=== PATIENT | female | born 1965 | race Caucasian/White ===

== ENCOUNTER 2023-06-06 16:34 | Emergency (ER) | payer OTHER, MEDICAID, SELFPAY ==
[2023-06-06 16:56] VITALS: BP 152/90; PULSE 88; RESP 16; TEMP 36.8; O2SAT 97
--- NOTE | 2023-06-06 20:13 | ED.VIS.FALL ---
HPI HPI - Fall History of Present Illness Chief Complaint: Fall Informant: patient Narrative Narrative: Patient tripped on her shoes and an uneven area of the ground. She fell forward. She caught herself on the hands. She states she abraded her right hand just slightly but it does not hurt. Never hit her knees. She did hit her forehead and has a laceration above the eye. She is not on any blood thinners. She does not have a headache or neurologic symptoms. No nausea vomiting. No real headache. Last tetanus was over 10 years ago. [facility] Medical History (Updated 06/06/23 @ 21:[address] [place] MD) Appendicitis Home Medications NK 06/06/23 [History Last Taken Unknown] Allergy/AdvReac Type Severity Reaction Status Date / Time No Known Allergies Allergy Verified 06/06/23 16:58 Surgical History (Updated 06/06/23 @ 20:17 by Claudia Rodriguez) History of dental surgery Hx of tubal ligation Social History Smoking Status: Former smoker ROS ROS ED Constitutional Constitutional ED: Denies chills or fever(s) Eyes Eyes: Denies blurry vision, change in vision or diplopia ENT ENT ED: Denies rhinorrhea Cardiovascular Cardiovascular: Denies chest pain Respiratory/Chest Respiratory/Chest: Denies cough Gastrointestinal Gastrointestinal: Denies nausea or vomiting Integumentary Reports other Details: Laceration Neurologic Neurologic: Denies headache(s), paresthesias or weakness Hematologic/Lymphatic Hematologic/Lymphatic: Denies easy bleeding or easy bruising Allergic/Immunologic Allergic/Immunologic ED: Denies urticaria EXAM Physical Exam Narrative Exam Narrative: General: Patient awake alert no acute distress pleasant clear and consistent informant. HEENT: There is a 3 cm laceration above the right eyebrow. No active bleeding. Minimal swelling. A little bit of bruising just below it. No step-off. No bony tenderness. Eyes: A little bit of bruising in the upper lid is starting to develop but no involvement of the eye itself. No proptosis or limitation of motion. Neck is not tender or painful of range of motion Cardiorespiratory shows easy unlabored breathing no tenderness and normal saturations. Lungs are clear. Abdomen is benign. Extremities show just a little redness to the base of the hypothenar eminence on the right hand but no actual break in the skin. No tenderness. No pain with motion. Const Vital Signs: 06/06/23 16:56 06/06/23 20:15 Temperature 98.2 F Temperature Source Oral Pulse Rate 88 Respiratory Rate 16 Respiratory Effort Normal Non-Labored Respiratory Depth Normal Respiratory Pattern Normal Blood Pressure 152/90 H Blood Pressure Mean 110 Pulse Ox 97 Oxygen Delivery Method Room Air Room Air MDM MDM MDM Narrative Medical decision making narrative: Patient has had injury but has no pain at the area. No blood thinners. No headache no neurologic symptoms. I do not think she requires CAT scan. We did suture the wound. She tolerated this well. Sutures will be out in 5 days. Discussed reasons to return and signs of infection. Procedures Lacerations Forehead: Depth: Skin Shape: Linear Prep: Sterile Conditions and Shure-Clens Laceration repair: Irrigated, Lidocaine with epi and Local Irrigated (ml): 100 Number of Sutures/[place]: 6 Suture Information: Ethilon and 6-0 Comment: Patient tolerated procedure well and was closed with good Cosmesis hemostasis. Discharge Plan Triage Chief Complaint: Fall ED Provider: [place] Pet[place] Dx/Rx/DC Orders Clinical Impression: Fall from slip, trip, or stumble, Forehead laceration, Sutured skin wound Instructions: ED Laceration, All Closures Prescriptions: No Action NK Primary Care Provider: Care Physician,No Primary Referrals: [facility] Doctor,Out of [Non-Staff] - Activity Restrictions/Additional Instructions: Sutures out in approximately 5 days. May see your private physician, urgent care or return. Disposition Disposition: Home, Self Care
[2023-06-06] MEDS: Lidocaine/Epi/Tetracaine 50 ML 1 APPLIC TOPICAL (20:14)
[2023-06-06 20:15] VITALS: BMI 31.4
--- OUTSIDE RECORDS SUMMARY | 2023-06-06 20:33 | XMS RPT_ITS | CCD ---
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 Name Role Phone PHYSICIAN, NONE Primary Care Physician Unavailab le Unavailable Primary Care Provider UnavailJOAQUINA Jacobson Referring Unavailable ROBBY SANTANA Attending Unavailabl e ROBBY SANTANA Attending UnavailROBBY Lima Referring Unavailabl e Unavailable Primary Care Provider Unavailabl e PHYSICIAN, NONE Primary Care Unavailable ISABEL SAEED MD Attending Unavailab le ISABEL SAEED MD Attending Unavailab le PHYSICIAN, NONE Primary Care Unavailable PHYSICIAN, NONE Primary Care Unavailable ISABEL SAEED MD Attending Unavailab le PHYSICIAN, NONE Primary Care Unavailable ISABEL SAEED MD Attending Unavailab le Medications Current Medications Medication Drug Class(es) Dates Sig (Normalized) Sig (Original) HYDROmorphone hydrochloride 2 mg oral tablet (1 source) Opioid Agonist Start: 12-27-2005 Dilaudid 2 mg, PO, q4-6hr, PRN, 24 tab(s), 0, 0 Start Date: 12/27/05 Status: Ordered Completed/Discontinued Medications Medication Drug Class(es) Dates Sig (Normalized) Sig (Original) Vicodin (1 source) Opioid Agonist Start: 12-27-2005 Vicodin 1 tab(s), PO, q4hr, 0, 0 Start Date: 12/27/05 Status: Ordered betamethasone 3 mg/ml / betamethasone acetate 3 mg/ml injectable suspension (1 source) Corticosteroid Start: 02-03-2022 End: 02-03-2022 betamethasone acetate-betamethason e sodium phosphate 12 mg injection (CELESTONE) Problems Problem Classification Problem Date Documented Date Episodic/Chronic Esophageal disorders (2 sources) Gastro-esophageal reflux disease without esophagitis; Translations: [Gastro-esophageal reflux disease without esophagitis] Onset: 03-21-2023 Chronic Joint disorders and dislocations; trauma-related (4 sources) Tear of medial meniscus of knee; Translations: [Other tear of medial meniscus, current injury, left knee, initial encounter] Onset: 02-03-2022 Episodic Osteoarthritis (4 sources) Osteoarthritis of left knee joint; Translations: [Unilateral primary osteoarthritis, left knee] Onset: 02-03-2022 Chronic Other non-traumatic joint disorders (3 sources) Pain in left knee; Translations: [Pain in joint, lower leg] Onset: 02-03-2022 Episodic Results Test Name Value Interpretation Reference Range Facil ity Vital Signs Date Time Vital Sign Value Performing Clinician Faci lity 02-03-2022 09:07-0400 Body height 172.7 cm Robby Santana MD Work Phone: [facility] 02-03-2022 09:07-0400 Body weight 92.99 kg Robby Santana MD Work Phone: [facility] 02-03-2022 09:07-0400 Heart rate 73 /min Robby Santana MD Work Phone: [facility] 02-03-2022 09:07-0400 SaO2% (BldA) [Mass fraction] 97 % Robby Santana MD Work Phone: [facility] 01-28-2022 17:17-0400 Body temperature 97.52 [degF] BRANDON WU DO [facility] 01-28-2022 17:17-0400 Diastolic blood pressure 87 mm[Hg] BRANDON WU DO [facility] 01-28-2022 17:17-0400 Heart rate 72 /min [facility] 01-28-2022 17:17-0400 Mean blood pressure 103 mm[Hg] BRANDON WU DO [facility] 01-28-2022 17:17-0400 Respiratory rate 18 /min BRANDON [employer] [facility] 01-28-2022 17:17-0400 Systolic blood pressure 136 mm[Hg] BRANDON [employer] [facility] 01-28-2022 14:53-0400 Body temperature 98.06 [degF] BRANDON [employer] [facility] 01-28-2022 14:53-0400 Body weight 92.4 kg BRANDON [employer] [facility] 01-28-2022 14:53-0400 Diastolic blood pressure 98 mm[Hg] [facility] 01-28-2022 14:53-0400 Heart rate 86 /min BRANDON [employer] [facility] 01-28-2022 14:53-0400 Respiratory rate 18 /min [facility] [employer] [facility] 01-28-2022 14:53-0400 Systolic blood pressure 151 mm[Hg] [facility] Encounters Encounter Date Encounter Type Care Provider Facility Start: 05-04-2023 ambulatory NONE PHYSICIAN Facility :A Start: 04-05-2023 End: 04-06-2023 ambulatory NONE PHYSICIAN Facility:A Start: 03-21-2023 End: 03-22-2023 ambulatory NONE PHYSICIAN Facility:A Start: 03-21-2023 End: 03-26-2023 ambulatory ISABEL SAEED MD Facility:A Start: 05-04-2022 End: 05-04-2022 ambulatory ROBBY SANTANA Facility:[id number] Start: 05-04-2022 End: 05-04-2022 Patient encounter procedure Robby Santana MD Work Phone: [facility] Procedures Date Procedure Procedure Detail Performing Clinician Start: 02-03-2022 Arthrocentesis aspir &/inj major jt/bursa w/o us Robby Santana MD Work Phone: Start: 02-03-2022 Radiologic exam knee complete 4/more views Joaquina Parsons APRN.CNP Work Phone: Plan of Treatment Date Care Activity Detail Author Start: 01-06-2022 Influenza vaccination INFLUENZA (#1) [facility] Start: 05-08-2021 DEPRESSION ASSESSMENT DEPRESSION ASSESSMENT [facility] Start: 2016 SHINGRIX VACCINE (1 of 2) SHINGRIX VACCINE (1 of 2) [facility] Start: 12-26-2011 COLOGUARD (FIT-DNA) COLOGUARD (FIT-DNA) [facility] Start: 12-26-2011 Colonoscopy COLONOSCOPY [facility] Start: 12-26-2011 COLORECTAL CANCER SCREENING COLORECTAL CANCER SCREENING [facility] Start: 12-26-[address] COLONOGRAPHY [facility] Start: 12-26-2011 DIABETES SCREEN DIABETES SCREEN [facility] Start: 12-26-2011 FECAL OCCULT BLOOD FECAL OCCULT BLOOD [facility] Start: 12-26-2011 LIPID SCREEN LIPID SCREEN [facility] Start: 12-26-2011 SIGMOIDOSCOPY SIGMOIDOSCOPY [facility] Start: 2006 Mammography MAMMOGRAM [facility] Start: 1996 HPV TESTING HPV TESTING [facility] Start: 12-26-1987 PAP TESTING PAP TESTING [facility] Start: 1985 Urine microalbumin profile DTAP,TDAP,TD (1 - Tdap) [facility] Start: 1984 HEPATITIS C SCREENING HEPATITIS C SCREENING [facility] Start: 1984 HIV SCREENING HIV SCREENING [facility] Start: 06-27-1967 COVID-19 VACCINE (#1) COVID-19 VACCINE (#1) [facility] Start: 1965 HEPATITIS B (1 of 3 - 3-dose series) HEPATITIS B (1 of 3 - 3-dose series) [facility] End: 06-03-2023 MRI KNEE WO IVCON LT MRI KNEE WO IVCON LT Radiology Routine Primary osteoarthritis of left knee Tear of medial meniscus of left knee, current, unspecified tear type, initial encounter 1 Occurrences starting 05/04/2022 until 06/03/2023 [facility] Work Phone: Payers Date Payer Category Payer Unknown [id number] 2021 Unknown DAV DEMARCO HI X [id number] 2021-Present [phone] [address] [address] [place] [address] O [id number] 2021 Unknown [id number] 1966 Unknown [id number] 1965 Unknown [id number] 1966 Unknown [id number] 1966 Unknown [id number] Social History Date Type Detail Facility Tobacco smoking status [facility] Start: 02-03-2022 [facility] Start: 02-03-2022 Tobacco use and exposure Smoke less tobacco non-user [facility] Start: 02-03-2022 End: 05-04-2022 Alcohol intake Lifetime non-drinker (finding) [facility] Start: 1965 Sex Assigned At Not on file [facility] Start: 01-23-2022 End: 02-02-2022 Exposure to SARS-CoV-2 (event) Not sure [facility] Functional Status Date Assessment Result Facility 01-28-2022 Functional Status Standard Safet y ID band on, Call device within reach, Bed in low position, Wheels locked, Upper/Half-Length side-rails up, Phone within reach [facility] Mental Status Date Assessment Result Facility 01-28-2022 Mental Status Orientation Oriented x 4 [facility] Clinical Notes 01-28-2022 to 05-04-2022 Robby Santana MD - 05/04/2022 9:14 AM Yumiko Rainey MA - 05/04/2022 9:09 AM Franco Santana MD - 02/03/2022 9:40 AM Geno Rainey MA - 02/03/2022 9:04 AM EDT Note Date & Type Note Facility 05-04-2022 Note HNO ID: [id number] Author: Robby Santana MD Service: ? Author Type: Physician Type: Progress Notes Filed: 05/04/2022 9:35 AM Note Text: Chichi Duncan 1965 56 year old Chichi Duncan is a 56 year old female with the presenting complaint of Established Patient and Knee Pain of the Left Knee. Chichi reports a current pain level of 7 (Knee-Left). She describes the pain as Sharp. The pain is Continuous . Interventions tried include Medication. She was last seen in orthopaedic clinic for her knee on 02/03/2022 with Robby Santana. Most recent knee imaging was completed on 02/03/2022 (XR KNEE INJURY 4V AP/LAT/OBLS LEFT) . Attached is imaging for the order.The most recent knee injection was Large Joint Arthro/Inj: L knee joint, injected on 02/03/2022 by Robby Santana. In the past (based on all medication history on file), Chichi has tried the following anti-inflammatory medications (not necessarily for this reason for visit): betamethasone acetate,sod phos. Last XR Knee - Impression Only XR KNEE INJURY 4V AP/LAT/OBLS LEFT Exam End: 02/03/2022 8:48 AM (Final result) Impression: IMPRESSION: No acute osseous abnormality. Joint effusion and minimal degenerative change. ... Orthopaedic Injections (up to last 5) Some values may be hidden. Unless noted otherwise, only the newest values recorded on each date are displayed. 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 She is genetically inclined osteoarthritis she is got degenerative changes at her DIPs and states that members of her family have significant arthritis as well. Her knee pain that continues in his medial sided pain she is got pain with palpation the medial joint line pain with flexion rotation with some crepitus there consistent with a Dawood's test her plain x-rays do show pretty reasonable preservation of the soft tissues in order an MRI to assess the soft tissue in her knee space a little bit better. We will see her back when that is done we did discuss NSAID anti-inflammatory medication and we started on Naprosyn to 50 and educated her about how to take that and avoid heartburn. We will have her come back with her MRI and see how the NSAID is being tolerated and whether it is helping. She is also having pain in the area of the SI joint on the right side as well with the typical pain radiation nurse ordered to evaluate that issue as well. Objective: ACTIVE PROBLEM LIST Unilateral Primary Osteoarthritis, Left Knee Other Tear of Medial Meniscus, Current Injury, Left Knee, Initial Encounter Assessment: Plan: Robby Santana MD [facility] 05-04-2022 History of Present illness Narrative Chichi Duncan 1965 56 year old Chichi Duncan is a 56 year old female with the presenting complaint of Established Patient and Knee Pain of the Left Knee. Chichi reports a current pain level of 7 (Knee-Left). She describes the pain as Sharp. The pain is Continuous . Interventions tried include Medication. She was last seen in orthopaedic clinic for her knee on 02/03/2022 with Robby Santana. Most recent knee imaging was completed on 02/03/2022 (XR KNEE INJURY 4V AP/LAT/OBLS LEFT) . Attached is imaging for the order.The most recent knee injection was Large Joint Arthro/Inj: L knee joint, injected on 02/03/2022 by Robby Santana. In the past (based on all medication history on file), Chichi has tried the following anti-inflammatory medications (not necessarily for this reason for visit): betamethasone acetate,sod phos. Last XR Knee - Impression Only XR KNEE INJURY 4V AP/LAT/OBLS LEFT Exam End: 02/03/2022 8:48 AM (Final result) Impression: IMPRESSION: No acute osseous abnormality. Joint effusion and minimal degenerative change. ... Orthopaedic Injections (up to last 5) Some values may be hidden. Unless noted otherwise, only the newest values recorded on each date are displayed. 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 She is genetically inclined osteoarthritis she is got degenerative changes at her DIPs and states that members of her family have significant arthritis as well. Her knee pain that continues in his medial sided pain she is got pain with palpation the medial joint line pain with flexion rotation with some crepitus there consistent with a Dawood's test her plain x-rays do show pretty reasonable preservation of the soft tissues in order an MRI to assess the soft tissue in her knee space a little bit better. We will see her back when that is done we did discuss NSAID anti-inflammatory medication and we started on Naprosyn to 50 and educated her about how to take that and avoid heartburn. We will have her come back with her MRI and see how the NSAID is being tolerated and whether it is helping. She is also having pain in the area of the SI joint on the right side as well with the typical pain radiation nurse ordered to evaluate that issue as well. Objective: ACTIVE PROBLEM LIST Unilateral Primary Osteoarthritis, Left Knee Other Tear of Medial Meniscus, Current Injury, Left Knee, Initial Encounter Assessment: Plan: Robby Santana MD documented in this encounter [facility] 05-04-2022 Nurse Note Patient here to follow up on Left Knee pain that has been going on for several months. She was last seen end of Jan 2022 and had the knee aspirated and injected. She states that helped for only a few days. She states knee is painful with pretty much type of activity and it does swell. She is taking ibuprofen for the pain, uses a heating pad. documented in this encounter [facility] 02-03-2022 Note HNO ID: [id number] Author: Robby Santana MD Service: ? Author Type: Physician Type: Progress Notes Filed: 02/03/2022 9:42 AM Note Text: Chichi Duncan 1965 56 year old Chichi Duncan is a 56 year old female with the presenting complaint of New and Knee Pain of the Left Knee. Chichi reports a current pain level of 8 (Knee-Left). She describes the pain as Sharp. The pain is Continuous, and has lasted for 1 Months. Most recent knee imaging was completed on 02/03/2022 (XR KNEE INJURY 4V AP/LAT/OBLS LEFT) . Attached is imaging for the order. Last XR Knee - Impression Only XR KNEE INJURY 4V AP/LAT/OBLS LEFT Exam End: 02/03/2022 8:48 AM (Final result) Impression: IMPRESSION: No acute osseous abnormality. Joint effusion and minimal degenerative change. ... 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 She does not recall any inciting event since her knee has been swollen and painful it really is affecting her ability to work and how she is able to do her work. Objective: On examination she is capable of full extension except its uncomfortable she only flexes to about 120 degrees she has small to moderate sized effusion she is stable to varus flex and AP stressing she has tremendous medial joint line tenderness to palpation and significant pain along the medial joint line with flexion and rotation as well. Plain x-rays show a little loss of soft to space the medial compartment of her knee she also has some osteophytic lipping around the medial compartment of her knee rest of her knee looks pretty good. There is no problem list on file for this patient. Assessment: Diagnosis is osteoarthritis she has tremendous osteoarthritic involvement of her DIPs of both hands. Indicating tremendous genetic involvement. Plan: We aspirated her and injected her knee with tentative diagnosis of osteoarthritis there she was significantly relieved we will reassess her again in a month. Large Joint Arthro/Inj: L knee joint Informed Consent Consent Obtained: Verbal Geneva Protocol A moment to CARE was completed. SIGN IN Patient/Surrogate Stated/Verified: Patient name, Date of , Relevant allergies and Intended procedure TIME OUT Medications required for procedure verified. 02/03/2022 9:42 AM The procedure site was prepped in the usual sterile fashion. Site: L knee joint Aspirate: 15 mL clear and yellowMedications: 12 mg betamethasone acetate-betamethasone sodium phosphate 6 mg/mL Anesthetics: 0.5 mL bupivacaine (PF) 0.25 % (2.5 mg/mL) Outcome: Tolerated well, no immediate complications Post-injection instructions were reviewed with the patient and the patient voiced understanding of these instructions. SIGN OUT Post-procedure follow-up management communicated and Plan of Care Visit completed when applicable Robby Santana MD [facility] 02-03-2022 Note HNO ID: [id number] Author: RT Raheel(R) Service: Radiology Author Type: Technologist Type: Progress Notes Filed: 02/03/2022 8:49 AM Note Text: Summary: left knee Radiology Service Progress Note PATIENT NAME: Chichi Duncan DATE OF SERVICE: February 03, 2022 TIME: 8:48 AM PATIENT IDENTITY VERIFICATION COMPLETED USING TWO (2) IDENTIFIERS: Name and Date of confirmed by patient verbally. FALL SCREENING: Has the patient had 2 falls in the last year or 1 fall with injury or currently using an Ambulatory Assistive Device (Walker, Cane, Wheelchair, Crutches, etc.)? No PATIENT GENDER DATA: Female. status: : No status: N/A PATIENT RELEVANT IMPLANT DATA REVIEWED: Not Applicable RADIOLOGY DEPARTMENT: General X-ray: Exam(s) Completed: Lower Extremity X-Ray(s): Knee, AP / Lat / Merchant Left PERIPHERAL IV DATA: Not applicable SIGNED BY: Anamika Apple, RT(R) February 03, 2022 8:48 AM [facility] 02-03-2022 History of Present illness Narrative Associated Order(s): Large Joint Arthro/Inj: L knee joint Post-Procedure Diagnose(s): Primary osteoarthritis of left knee; Tear of medial meniscus of left knee, current, unspecified tear type, initial encounter Chichi Duncan 1965 56 year old Chichi Duncan is a 56 year old female with the presenting complaint of New and Knee Pain of the Left Knee. Chichi reports a current pain level of 8 (Knee-Left). She describes the pain as Sharp. The pain is Continuous, and has lasted for 1 Months. Most recent knee imaging was completed on 02/03/2022 (XR KNEE INJURY 4V AP/LAT/OBLS LEFT) . Attached is imaging for the order. Last XR Knee - Impression Only XR KNEE INJURY 4V AP/LAT/OBLS LEFT Exam End: 02/03/2022 8:48 AM (Final result) Impression: IMPRESSION: No acute osseous abnormality. Joint effusion and minimal degenerative change. ... 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 She does not recall any inciting event since her knee has been swollen and painful it really is affecting her ability to work and how she is able to do her work. Objective: On examination she is capable of full extension except its uncomfortable she only flexes to about 120 degrees she has small to moderate sized effusion she is stable to varus flex and AP stressing she has tremendous medial joint line tenderness to palpation and significant pain along the medial joint line with flexion and rotation as well. Plain x-rays show a little loss of soft to space the medial compartment of her knee she also has some osteophytic lipping around the medial compartment of her knee rest of her knee looks pretty good. There is no problem list on file for this patient. Assessment: Diagnosis is osteoarthritis she has tremendous osteoarthritic involvement of her DIPs of both hands. Indicating tremendous genetic involvement. Plan: We aspirated her and injected her knee with tentative diagnosis of osteoarthritis there she was significantly relieved we will reassess her again in a month. Large Joint Arthro/Inj: L knee joint Informed Consent Consent Obtained: Verbal Geneva Protocol A moment to CARE was completed. SIGN IN Patient/Surrogate Stated/Verified: Patient name, Date of , Relevant allergies and Intended procedure TIME OUT Medications required for procedure verified. 02/03/2022 9:42 AM The procedure site was prepped in the usual sterile fashion. Site: L knee joint Aspirate: 15 mL clear and yellowMedications: 12 mg betamethasone acetate-betamethasone sodium phosphate 6 mg/mL Anesthetics: 0.5 mL bupivacaine (PF) 0.25 % (2.5 mg/mL) Outcome: Tolerated well, no immediate complications Post-injection instructions were reviewed with the patient and the patient voiced understanding of these instructions. SIGN OUT Post-procedure follow-up management communicated and Plan of Care Visit completed when applicable Robby Santana MD documented in this encounter [facility] 02-03-2022 Nurse Note New patient 56 year old female here for Left Knee pain that has been going on for about a month, no known injury. She was seen at [place] [facility] last week, had an ultrasound of the knee. She states pain is entire knee and it does swell. She is wearing sukhdev wraps, using ice and taking Ibuprofen. She states has pain with walking, standing. Xrays done here today. documented in this encounter [facility] 02-03-2022 History of Present illness Narrative Summary: left knee Radiology Service Progress Note PATIENT NAME: Chichi Duncan DATE OF SERVICE: February 03, 2022 TIME: 8:48 AM PATIENT IDENTITY VERIFICATION COMPLETED USING TWO (2) IDENTIFIERS: Name and Date of confirmed by patient verbally. FALL SCREENING: Has the patient had 2 falls in the last year or 1 fall with injury or currently using an Ambulatory Assistive Device (Walker, Cane, Wheelchair, Crutches, etc.)? No PATIENT GENDER DATA: Female. status: : No status: N/A PATIENT RELEVANT IMPLANT DATA REVIEWED: Not Applicable RADIOLOGY DEPARTMENT: General X-ray: Exam(s) Completed: Lower Extremity X-Ray(s): Knee, AP / Lat / Merchant Left PERIPHERAL IV DATA: Not applicable SIGNED BY: RT Raheel(R) February 03, 2022 8:48 AM documented in this encounter [facility] 01-28-2022 Hospital Discharge instructions Patient Education 01/28/2022 17:20:54 Knee Pain of Uncertain Cause Knee Pain with Uncertain Cause There are several common causes for knee pain. These can include: A sprain of the ligaments that support the joint An injury to the cartilage lining of the joint Arthritis from [id number] or inflammation There are other causes as well. There may also be swelling, reduced movement of the knee joint, and pain with walking. A definite diagnosis will still need to be made. If your symptoms don't improve, further follow-up and testing may be needed. Home care Stay off the injured leg as much as possible until pain improves. Apply an ice pack over the injured area for 15 to 20 minutes every 3 to 6 hours. You should do this for the first 24 to 48 hours. You can make an ice pack by filling a plastic bag that seals at the top with ice cubes and then wrapping it with a thin towel. Continue to use ice packs for relief of pain and swelling as needed. As the ice melts, be careful not to get your wrap, splint, or cast wet. After 48 hours, apply heat (warm shower or warm bath) for 15 to 20 minutes several times a day, or alternate ice and heat. If you have to wear a [id number] knee brace, you can open it to apply the ice pack, or heat, directly to the knee. Never put ice directly on the skin. Always wrap the ice in a towel or other type of cloth. You may use gxwm-qme-hidybts pain medicine to control pain, unless another pain medicine was prescribed. If you have chronic liver or kidney disease or ever had a stomach ulcer or gastrointestinal bleeding, talk with your healthcare provider before using these medicines. If crutches or a walker have been recommended, don't put weight on the injured leg until you can do so without pain. Check with your healthcare provider before returning to sports or full work duties. If you have a mgkd-tbn-mzsh knee brace, you can remove it to bathe and sleep, unless told otherwise. Follow-up care Follow up with your healthcare provider as advised. This is usually within 1 to 2 weeks. If X-rays were taken, you will be told of any new findings that may affect your care Call 911 Call 911 if you have: Shortness of breath Chest pain When to seek medical advice Call your healthcare provider right away if any of these occur: Toes or foot becomes swollen, cold, blue, numb, or tingly Pain or swelling spreads over the knee or calf Warmth or redness appears over the knee or calf Other joints become painful Rash appears Fever of 100.4 F (38 C) or higher, or as directed by your healthcare provider Kylee [phone] [employer]. [address] [place] [address]. All rights reserved. This information is not intended as a substitute for professional medical care. Always follow your healthcare professional's instructions. Follow Up Care 01/28/2022 13:57:51 With:LAKEISHA JACOBS DO, Orthopedic Address: [facility] [place] [address]- [phone] When:2-4 days [facility] 01-28-2022 Summary note Discharge Instructions Thank you for allowing [facility] to assist you with your healthcare needs. The following is important discharge information regarding your hospital visit. Diagnosis from Today's Visit Knee pain-swelling What to Do Next Instructions from Your Care Team No qualifying data available. Post Acute Orders No qualifying data available. You Need to Schedule the Following Appointments Follow Up with LAKEISHA JACOBS DO, Orthopedic When Within 2-4 days Where: [facility] [place] [address] [phone] Allergies NKA Medications Please ask your primary doctor or pharmacist before taking any other medication not listed, including over the counter drugs, herbal medications, vitamins and or supplements as they may interact with your home medications. What How Much When Instructions Last Dose Unchanged acetaminophen-hydrocodone (Vicodin) 1 tab(s) by mouth Every 4 hours Unchanged ciprofloxacin (Cipro) 500 Milligram by mouth Every 12 hours Unchanged hydromorphone (Dilaudid) 2 Milligram by mouth Every 4 to 6 hours as needed for as needed for pain Please take this list to your next doctor s visit. Bring all medications you take, including over the counter medications, herbals and other supplements with you to your doctor s visit. Patients and families are reminded to discard old lists and to update any records with all medication providers or retail pharmacies. Education Materials Knee Pain with Uncertain Cause There are several common causes for knee pain. These can include: A sprain of the ligaments that support the joint An injury to the cartilage lining of the joint Arthritis from gusc-oyu-ritv or inflammation There are other causes as well. There may also be swelling, reduced movement of the knee joint, and pain with walking. A definite diagnosis will still need to be made. If your symptoms don't improve, further follow-up and testing may be needed. Home care Stay off the injured leg as much as possible until pain improves. Apply an ice pack over the injured area for 15 to 20 minutes every 3 to 6 hours. You should do this for the first 24 to 48 hours. You can make an ice pack by filling a plastic bag that seals at the top with ice cubes and then wrapping it with a thin towel. Continue to use ice packs for relief of pain and swelling as needed. As the ice melts, be careful not to get your wrap, splint, or cast wet. After 48 hours, apply heat (warm shower or warm bath) for 15 to 20 minutes several times a day, or alternate ice and heat. If you have to wear a meoi-fxn-qzox knee brace, you can open it to apply the ice pack, or heat, directly to the knee. Never put ice directly on the skin. Always wrap the ice in a towel or other type of cloth. You may use jnkk-jsl-nrecjsf pain medicine to control pain, unless another pain medicine was prescribed. If you have chronic liver or kidney disease or ever had a stomach ulcer or gastrointestinal bleeding, talk with your healthcare provider before using these medicines. If crutches or a walker have been recommended, don't put weight on the injured leg until you can do so without pain. Check with your healthcare provider before returning to sports or full work duties. If you have a wwuw-uoc-wipc knee brace, you can remove it to bathe and sleep, unless told otherwise. Follow-up care Follow up with your healthcare provider as advised. This is usually within 1 to 2 weeks. If X-rays were taken, you will be told of any new findings that may affect your care Call 911 Call 911 if you have: Shortness of breath Chest pain When to seek medical advice Call your healthcare provider right away if any of these occur: Toes or foot becomes swollen, cold, blue, numb, or tingly Pain or swelling spreads over the knee or calf Warmth or redness appears over the knee or calf Other joints become painful Rash appears Fever of 100.4 F (38 C) or higher, or as directed by your healthcare provider Kylee [phone] [employer]. [address] [place] [address]. All rights reserved. This information is not intended as a substitute for professional medical care. Always follow your healthcare professional's instructions. Additional Information VACCINATE! IT SAVES LIVES! Members of the community who have not yet received the COVID-19 vaccine and would like to receive it can visit one of [facility] vaccine clinics. There are many vaccine clinic locations within the [facility]. For locations and available times, please visit [email or web address]. It is important to note that some COVID mobile vaccine clinics are held outdoors and may be canceled in rainy or stormy conditions. To learn more about pediatric vaccinations (ages 5-11), we invite you to visit the [facility] webpage. https://[email or web address]/p ages/[email or web address]-Rozmc-Xpcbiplfsyk-Freq fnrpgq-Hayeh-Maellxkbx.html To learn more about the COVID-19 vaccine, we invite you to visit the [facility] website for a list of frequently asked questions. [email or web address] [email or web address] [facility] Patient Portal Access Instructions: Stay connected with your healthcare team and access your personal medical information anytime with the [facility] Patient Portal. If you would like a full copy of your medical records please contact the [facility] Medical Records Department Monday through Monday between 8a.m. and 4:30p.m. Please follow the directions below to access the portal: 1.Access the email account you provided upon registration to the hospital.2.Look for an invitation email from [facility].3.Open the email and access the invitation link: Accept Invitation to [facility]4.Fill in the required watkins to create your account. Sign into [email or web address] with your username and password that you created in the above steps to stay up to date. You can then view a summary of results, a summary of your visits, and the ability to download your summaries to your computer or send the information securely to a physician. Remember that your healthcare information is confidential, so carefully consider who you will allow to register on the [facility] Patient Portal for access to your information. You can also access the [facility] Patient Portal on the [employer]. Simply click on Health Records under Health Data and then click on the [employer] logo. HOW TO SAFELY DISPOSE OF PRESCRIPTION MEDICATIONS Please use one of the following methods to safely dispose of your unused medications. 1.Use a drug disposal kit: the drug disposal pouch allows you to safely discard your old and unused drugs. Ask your nurse to give you one when you are discharged.2.Visit a local take-back location: Many local pharmacies and police departments have programs that collect old and unwanted prescription drugs. Call your local pharmacy or go to http://[employer].Liveclubs/5A8Pr3l to find one close to you.3.Make use of household items: Use cat litter or old coffee grounds to dispose medications if other options are not available. Mix your drugs with these household products, seal them in an airtight container and throw it into the garbage. Call [facility]: [phone] to be sure your drugs can be disposed of in this way. Some medicines may require a different approach.4.Never flush your medications down the toilet. IF YOU HAVE BEEN PRESCRIBED AN OPIOIDS FOR PAIN If you have been prescribed an opioid (such as hydrocodone, oxycodone or morphine), it is critical to understand the possible side effects and risks of opioid pain medications. Even when taken as directed, opioids can have several side effects including: Tolerance, meaning you might need to take more of a medication for the same pain relief. Nausea, vomiting and/or constipation. Sleepiness, dizziness, dry mouth, confusion, depression or itching. Physical dependence, meaning you have withdrawal symptoms when a medication is stopped ? this can develop within a few days. KNOW YOUR RESPONSIBILITIES It is important to know exactly how much and how often to take the opioid pain medications you are prescribed. Never take opioids in higher amounts or more often than prescribed. Do not combine opioids with alcohol or other drugs that cause drowsiness, such as benzodiazepines, also known as benzos, including diazepam and alprazolam, muscle relaxants or sleep aids. Never sell or share prescription opioids. This is illegal. Store opioids in a secure place and out of reach of others (including children, family, friends and visitors). The last page(s) of this document has been signed and retained as a CHART COPY Signatures Patient Education Materials Knee Pain of Uncertain Cause Medication Leaflets My discharge plan and instructions have been reviewed and explained to me and INIKO DARLA D understand my current condition and have read and understand these discharge instructions. I have received a written copy of the plan/instructions. If I have questions, I am aware that I should contact my doctor. 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 The following is important discharge information regarding your hospital visit. Diagnosis from Today's Visit Knee pain-swelling What to Do Next Instructions from Your Care Team No qualifying data available. Post Acute Orders No qualifying data available. You Need to Schedule the Following Appointments Follow Up with LAKEISHA JACOBS DO, Orthopedic When Within 2-4 days Where: [address] [place] [address]- [phone] Allergies NKA Medications Please ask your primary doctor or pharmacist before taking any other medication not listed, including over the counter drugs, herbal medications, vitamins and or supplements as they may interact with your home medications. What How Much When Instructions Last Dose Unchanged acetaminophen-hydrocodone (Vicodin) 1 tab(s) by mouth Every 4 hours Unchanged ciprofloxacin (Cipro) 500 Milligram by mouth Every 12 hours Unchanged hydromorphone (Dilaudid) 2 Milligram by mouth Every 4 to 6 hours as needed for as needed for pain Please take this list to your next doctor s visit. Bring all medications you take, including over the counter medications, herbals and other supplements with you to your doctor s visit. Patients and families are reminded to discard old lists and to update any records with all medication providers or retail pharmacies. Education Materials Knee Pain with Uncertain Cause There are several common causes for knee pain. These can include: A sprain of the ligaments that support the joint An injury to the cartilage lining of the joint Arthritis from ezgz-vyf-fbgu or inflammation There are other causes as well. There may also be swelling, reduced movement of the knee joint, and pain with walking. A definite diagnosis will still need to be made. If your symptoms don't improve, further follow-up and testing may be needed. Home care Stay off the injured leg as much as possible until pain improves. Apply an ice pack over the injured area for 15 to 20 minutes every 3 to 6 hours. You should do this for the first 24 to 48 hours. You can make an ice pack by filling a plastic bag that seals at the top with ice cubes and then wrapping it with a thin towel. Continue to use ice packs for relief of pain and swelling as needed. As the ice melts, be careful not to get your wrap, splint, or cast wet. After 48 hours, apply heat (warm shower or warm bath) for 15 to 20 minutes several times a day, or alternate ice and heat. If you have to wear a tjwn-kpg-iniy knee brace, you can open it to apply the ice pack, or heat, directly to the knee. Never put ice directly on the skin. Always wrap the ice in a towel or other type of cloth. You may use qvhr-xat-rewdoun pain medicine to control pain, unless another pain medicine was prescribed. If you have chronic liver or kidney disease or ever had a stomach ulcer or gastrointestinal bleeding, talk with your healthcare provider before using these medicines. If crutches or a walker have been recommended, don't put weight on the injured leg until you can do so without pain. Check with your healthcare provider before returning to sports or full work duties. If you have a bcev-fph-mekz knee brace, you can remove it to bathe and sleep, unless told otherwise. Follow-up care Follow up with your healthcare provider as advised. This is usually within 1 to 2 weeks. If X-rays were taken, you will be told of any new findings that may affect your care Call 911 Call 911 if you have: Shortness of breath Chest pain When to seek medical advice Call your healthcare provider right away if any of these occur: Toes or foot becomes swollen, cold, blue, numb, or tingly Pain or swelling spreads over the knee or calf Warmth or redness appears over the knee or calf Other joints become painful Rash appears Fever of 100.4 F (38 C) or higher, or as directed by your healthcare provider Kylee [phone] [employer]. [address] [place] [address]. All rights reserved. This information is not intended as a substitute for professional medical care. Always follow your healthcare professional's instructions. Additional Information VACCINATE! IT SAVES LIVES! Members of the community who have not yet received the COVID-19 vaccine and would like to receive it can visit one of [facility] vaccine clinics. There are many vaccine clinic locations within the [facility]. For locations and available times, please visit [email or web address]. It is important to note that some COVID mobile vaccine clinics are held outdoors and may be canceled in rainy or stormy conditions. To learn more about pediatric vaccinations (ages 5-11), we invite you to visit the [facility] webpage. https://www.[email or web address].org/p ages/4904-Eplfp-Qzjycftiksn-Freq sbduew-Jslts-Yvkilpzqk.html To learn more about the COVID-19 vaccine, we invite you to visit the [facility] website for a list of frequently asked questions. [email or web address] [facility] Access Instructions: Stay connected with your healthcare team and access your personal medical information anytime with the [facility] Patient Portal. If you would like a full copy of your medical records please contact the [facility] Medical Records Department Monday through Monday between 8a.m. and 4:30p.m. Please follow the directions below to access the portal: 1.Access the email account you provided upon registration to the [facility].2.Look for an invitation email from [facility].3.Open the email and access the invitation link: Accept Invitation to [facility]4.Fill in the required watkins to create your account. Sign into [email or web address] Security with your username and password that you created in the above steps to stay up to date. You can then view a summary of results, a summary of your visits, and the ability to download your summaries to your computer or send the information securely to a physician. Remember that your healthcare information is confidential, so carefully consider who you will allow to register on the [facility] Patient Portal for access to your information. You can also access the [facility] Patient Portal on the [employer]. Simply click on Health Records under Health Data and then click on the [facility] logo. HOW TO SAFELY DISPOSE OF PRESCRIPTION MEDICATIONS Please use one of the following methods to safely dispose of your unused medications. 1.Use a drug disposal kit: the drug disposal pouch allows you to safely discard your old and unused drugs. Ask your nurse to give you one when you are discharged.2.Visit a local take-back location: Many local pharmacies and police departments have programs that collect old and unwanted prescription drugs. Call your local pharmacy or go to http://bit.Liveclubs/8W4Wi5d to find one close to you.3.Make use of household items: Use cat litter or old coffee grounds to dispose medications if other options are not available. Mix your drugs with these household products, seal them in an airtight container and throw it into the garbage. Call [facility]: [phone] to be sure your drugs can be disposed of in this way. Some medicines may require a different approach.4.Never flush your medications down the toilet. IF YOU HAVE BEEN PRESCRIBED AN OPIOIDS FOR PAIN If you have been prescribed an opioid (such as hydrocodone, oxycodone or morphine), it is critical to understand the possible side effects and risks of opioid pain medications. Even when taken as directed, opioids can have several side effects including: Tolerance, meaning you might need to take more of a medication for the same pain relief. Nausea, vomiting and/or constipation. Sleepiness, dizziness, dry mouth, confusion, depression or itching. Physical dependence, meaning you have withdrawal symptoms when a medication is stopped ? this can develop within a few days. KNOW YOUR RESPONSIBILITIES It is important to know exactly how much and how often to take the opioid pain medications you are prescribed. Never take opioids in higher amounts or more often than prescribed. Do not combine opioids with alcohol or other drugs that cause drowsiness, such as benzodiazepines, also known as benzos, including diazepam and alprazolam, muscle relaxants or sleep aids. Never sell or share prescription opioids. This is illegal. Store opioids in a secure place and out of reach of others (including children, family, friends and visitors). The last page(s) of this document has been signed and retained as a CHART COPY Signatures Patient Education Materials Knee Pain of Uncertain Cause Medication Leaflets My discharge plan and instructions have been reviewed and explained to me and INIKO DARLA D understand my current condition and have read and understand these discharge instructions. I have received a written copy of the plan/instructions. If I have questions, I am aware that I should contact my doctor. 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: Relationship to Patient: Witness Name/Signature: Date/Time: [facility] Evaluation + Plan note No data available for this section [facility] [place] [facility] Diagnosis Primary osteoarthritis of left knee- Primary Primary localized osteoarthrosis, lower leg Tear of medial meniscus of left knee, current, unspecified tear type, initial encounter [facility] [place] [facility]* Diagnosis Left knee pain, unspecified chronicity documented in this encounter [facility] note* Diagnosis Primary osteoarthritis of left knee- Primary Primary localized osteoarthrosis, lower leg Tear of medial meniscus of left knee, current, unspecified tear type, initial encounter documented in this encounter [facility] for referral (narrative)* Diagnostic Procedure Only (Routine) - Closed Specialty Diagnoses / Procedures Referred By Contac t Referred To Contact XR IMAGING Diagnoses Left knee pain, unspecified chronicity Procedures XR KNEE INJURY 4V AP/LAT/OBLS LEFT RADIOLOGIC EXAM KNEE COMPLETE 4/MORE VIEWS Joaquina Parsons [employer] [address] [place] [address] Xr Imaging Referral ID Status Reason Start Date Expiration Date V isits Requested Visits Authorized [id number] Closed Auto-Generate d Referral 02/03/2022 03/05/2023 1 1 [facility] for referral (narrative)* Diagnostic Procedure Only (Routine) - Closed Specialty Diagnoses / Procedures Referred By Contac t Referred To Contact XR IMAGING Diagnoses Left knee pain, unspecified chronicity Procedures XR KNEE INJURY 4V AP/LAT/OBLS LEFT RADIOLOGIC EXAM KNEE COMPLETE 4/MORE VIEWS Joaquina Parsons, [employer]ER.[employer] [address] [place] [phone] Xr Imaging Referral ID Status Reason Start Date Expiration Date V isits Requested Visits Authorized [id number] Closed Auto-Generate d Referral 02/03/2022 03/05/2023 1 1 [facility] for visit Narrative* Diagnostic Procedure Only (Routine) - Closed Specialty Diagnoses / Procedures Referred By Contac t Referred To Contact XR IMAGING Diagnoses Left knee pain, unspecified chronicity Procedures XR KNEE INJURY 4V AP/LAT/OBLS LEFT RADIOLOGIC EXAM KNEE COMPLETE 4/MORE VIEWS Joaquina Parsosn, [employer] [address] [place] [address] Xr Imaging Referral ID Status Reason Start Date Expiration Date V isits Requested Visits Authorized [id number] Closed Auto-Generate d Referral 02/03/2022 03/05/2023 1 1 [facility] Medications Administered Section Inactive Administered Medications - up to 3 most recent administrations Medication Order MAR Action Action Date Dose Rate Site betamethasone acetate-betamethasone sodium phosphate 12 mg injection (CELESTONE) 12 mg, Injection - FOR ORTHO USE ONLY, ONE TIME INJECTION, 1 dose, Starting on Heydi 02/03/22 at 0942, Until Heydi 02/03/22 at 0942 Given 02/03/2022 9:42 AM EDT 12 mg Knee, Left bupivacaine (PF) 0.25 % (2.5 mg/mL) 0.5 mL injection (SENSORCAINE MPF) 0.5 mL, Injection - FOR ORTHO USE ONLY, ONE TIME INJECTION, 1 dose, Starting on Heydi 02/03/22 at 0942, Until Heydi 02/03/22 at 0942 Given 02/03/2022 9:42 AM EDT 0.5 mL Knee, Left Summary Purpose Family History No Family History Records FoundNo Family History Records Found Advance Directives No Advanced Directives Records FoundNo Advanced Directives Records Found Reason for Referral Specialty Diagnoses / Procedures Referred By Contac t Referred To Contact MR IMAGING Diagnoses Primary osteoarthritis of left knee Tear of medial meniscus of left knee, current, unspecified tear type, initial encounter Procedures MRI KNEE WO IVCON LT MRI ANY JT LOWER EXTREM W/O CONTRAST Robby Cohen MD [address] [place] [address] Mr Imaging Referral ID Status Reason Start Date Expiration Date Visits Requested Visits Authorized [id number] Pending Review Auto-Generat ed Referral 2 06/03/2023 1 1 Additional Source Comments Care Team (unrecognized sect ion and content) Care Team Personnel Name: PHYSICIAN, NONE Position: Physician Member Role: Primary Care Physician Care Team Related Persons Name: August Source Comments (unrecognize d section and content) In the event this informatio n is protected by the Federal Confidentiality of Alcohol and Drug Abuse Patient Records regulations: The Federal rules restrict any use of the information to criminally investigate or prosecute any alcohol or drug abuse patient.[facility] the event this information is protected by the Federal Confidentiality of Alcohol and Drug Abuse Patient Records regulations: The Federal rules restrict any use of the information to criminally investigate or prosecute any alcohol or drug abuse patient.[facility] the event this information is protected by the Federal Confidentiality of Alcohol and Drug Abuse Patient Records regulations: The Federal rules restrict any use of the information to criminally investigate or prosecute any alcohol or drug abuse patient.[facility] the event this information is protected by the Federal Confidentiality of Alcohol and Drug Abuse Patient Records regulations: The Federal rules restrict any use of the information to criminally investigate or prosecute any alcohol or drug abuse patient.[facility] the event this information is protected by the Federal Confidentiality of Alcohol and Drug Abuse Patient Records regulations: The Federal rules restrict any use of the information to criminally investigate or prosecute any alcohol or drug abuse patient.[facility] Reason for Visit (unrecogniz ed section and content) Reason Comments New Knee Pain Reason Comments Established Patient Knee Pain Specialty Diagnoses / Procedures Referred By Contac t Referred To Contact ORTHOPAEDIC SURGERY Diagnoses LEFT KNEE PAIN Procedures REFERRAL TO [facility] 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 Jan[address] Finley [address] [place] [address] Referral ID Status Reason Start Date Expiration Date V isits Requested Visits Authorized [id number] Closed OON/Self Pay Override Financial Clearance Required - OON Payor Patient Cleared INN/[facility] Payor Auth Obtained 02/03/2022 05/04/2022 1 1 INFORMATION SOURCE (unrecogn ized section and content) DATE CREATED AUTHOR AUTHOR'S ORGANIZ ATION 05/16/2023 [facility] [place] [facility] FOR RECORDS PERTAINING TO PATIENTS WHO ARE OR HAVE BEEN ENROLLED IN A CHEMICAL DEPENDENCY/SUBSTANCEABUSE PROGRAM, SOME INFORMATION MAY BE OMITTED. This clinical summary was aggregated from multiple sources. Caution should be exercised in using it in the provision of clinical care. This summary normalizes information from multiple sources, and as a consequence, information in this document may materially change the coding, format and clinical context of patient data. In addition, data may be omitted in some cases. CLINICAL DECISIONS SHOULD BE BASED ON THE PRIMARY CLINICAL RECORDS. [facility]. provides no warranty or guarantee of the accuracy or completeness of information in this document.
== END 2023-06-06 22:33 | disposition home or self-care (01) ==
PROVIDERS: Emergency Provider Emergency Medicine; Visit Provider Emergency Medicine
DX: S05.30XA Ocular laceration without prolapse or loss of intraocular tissue, unspecified eye, initial encounter (principal); Z87.891 Personal history of nicotine dependence; W18.09XA Striking against other object with subsequent fall, initial encounter
CPT/HCPCS: 12013; 99283